=== PATIENT | male | born 1985 | race Caucasian/White ===

== ENCOUNTER 2023-09-19 15:26 | Outpatient (CLI) | payer BC, SELFPAY ==
[2023-09-19 16:24] LABS: Alanine Aminotransferase 16 U/L (6-50); Albumin Level 4.9 g/dL (3.5-5.1); Alkaline Phosphatase 91 U/L (38-126); Amylase 88 U/L (30-110); Aspartate Amino Transferase 22 U/L (17-59); Bilirubin,Total 3.7 mg/dL (0.2-1.3); Lipase 127 U/L (23-300)
== END 2023-09-19 15:27 | disposition home or self-care (01) ==
PROVIDERS: PCP Internal Medicine; Referring Provider Internal Medicine Gastroenterology; Visit Provider Surgery
DX: Z01.818 Encounter for other preprocedural examination (principal); K80.20 Calculus of gallbladder without cholecystitis without obstruction
CPT/HCPCS: 36415; 80076; 82150; 83690

== ENCOUNTER 2023-09-21 01:45 | Day surgery (SDC) | payer BC, SELFPAY ==
[2023-09-12 15:09] VITALS: BMI 17.7
--- NOTE | 2023-09-12 15:13 | PC.NURSE ---
Report to the Outpatient Waiting Room, entrance under the green pavilion located off [facility], at time 10:00 on date 09/21/23. Planned Procedure Time: 12:00. Time changes happen often and if your time is changed the preop area will call you the afternoon before. - You and your visitor will be asked to self-screen and do not enter if you have any COVID symptoms. - A mask is optional within the hospital at this time. Patients may have clear liquids (water, carbonated beverages, clear teas, apple juice) until 3 hours prior to surgery (9:00) with a maximum of 20 ounces. - No food from midnight until time of surgery Take the following medications with a SIP of water the morning of surgery: N/A DO NOT STOP ANY OF YOUR OTHER PRESCRIPTION MEDICATIONS PRIOR TO SURGERY ?EXCEPT THE FOLLOWING Medications to discontinue per physician: IBUPROFEN Date to take last dose: PER DR. AYALA (ONLY TAKING AFTER WISDOM TOOTH EXTRACTION) Please no make-up, nail korean, hairspray, perfume, deodorant, or body powder the day of surgery. No jewelry (including any body piercings) or valuables the day of surgery, leave them at home. Please take a shower or bath the night before, or the morning of, surgery with an antibacterial soap. Wear comfortable, loose fitting clothing. - Jewelry must be removed prior to entering the operating room. Rings and piercings that are not removed may be cut off. - The hospital will not accept responsibility for valuables. - Please leave all valuables, including medications, at home the day of surgery. If you are going home after surgery, a licensed trailer driver must drive you home. - NO public transportation without another adult if you receive anesthesia. - We recommend that an adult stay with you for 24 hours following discharge. - We also recommend that you do not drive, make important decision, drink alcoholic beverages, or take any drugs that were not prescribed by your health care provider for at least 24 hours after your discharge time. Follow any additional instructions given to you from your surgeon. If you or anyone in your household have experienced Covid symptoms in the past week, please notify your surgeon or the nurse liaison at the phone number below for possible testing. Telephone instructions given to PT - PASCALE WALDEN and asked if any additional questions and then verbalized understanding. Patient advised to call surgeon office or pre surgery nurse liaison [phone] if any additional questions.
--- NOTE | ~2023-09-21 | XR_ITS ---
EXAMINATION: XR cholangiogram surg 1st inj DATE: 09/21/2023 13:06 INDICATION: Laparoscopic cholangiogram TECHNIQUE: 65 fluoroscopic images of the right upper quadrant were obtained during intraoperative cho langiography performed by the surgeon. I was not present in the operating room. Fluoroscopy exposure time was 12.5 seconds. COMPARISON: None. FINDINGS: No filling defects are identified in the common bile duct. This was communicated directly t o the operating room at 1257 hours on 09/21/2023. IMPRESSION: 1. No filling defects identified in the common bile duct. Reviewed, dictated and finalized at location B. OSOPHY PROFESSOR
[2023-09-21] MEDS: LACTATED RINGERS 1,000 ML 30 ML IV CONT ×2 (10:30→13:21)
[2023-09-21 11:00] VITALS: BP 149/91; PULSE 92; RESP 16; TEMP 36.8; O2SAT 100
[2023-09-21] MEDS: ACETAMINOPHEN 500 MG TABLET 1000 MG PO (11:00)
[2023-09-21] MEDS: KETOROLAC 15 MG/ML VIAL (*BKC) IV PUSH (11:00)
--- NOTE | 2023-09-21 11:55 | P.PNAN_ITS ---
Anes - Initial Pre Proc Eval Procedure: Operation Date: 09/21/23 12:00 Proposed Procedures p Laparoscopic Cholecystectomy Intraoperative Cholangiogram, Possible Open - Higinio Wu DO Date/Time: 09/21/23 11:55 Surgeon: Higinio Wu DO Pre Op Diagnosis: symptomatic cholelithiasis, Elev Liver Enzymes Patient Data Age: 38 Gender: M Height: 1.68 m Weight: 45.6 kg Last Vital Signs Temp 36.8 C 09/21/23 11:00 Pulse 92 09/21/23 11:00 Resp 16 09/21/23 11:00 BP 149/91 H 09/21/23 11:00 Pulse Ox 100 09/21/23 11:00 O2 Del Method Room Air 09/21/23 11:00 Allergies Allergy/AdvReac Type Severity Reaction Status Date / Time No Known Allergies Allergy Verified 09/21/23 11:16 Home Medications Medication Instructions Recorded Confirmed Type ibuprofen 800 mg tablet 800 mg PO TID PRN Pain 09/12/23 09/21/23 History Patient hx anesthesia problems: none Family hx anesthesia problems: none Results Review: All pre-operative results and documents have been reviewed as part of the pre- operative evaluation. PMFSH Family History Family History Other Cancer Heart disease Social History Social History Smoking status: Never smoker Alcohol intake: never Substance use: current Substance use type: marijuana Living arrangements: alone Spiritual care concerns: No Anes - Eval Final PreProcedure Day of Procedure 09/21/23 11:55 Patient weight: cachectic Heart: regular rate and rhythm Lungs: clear to auscultation Airway: Mallampati scale class II Neurological: alert and oriented Last oral intake: >/= 8 hours ASA classification: III Emergent: no Anesthetic plan: proceed Anesthesia type and monitoring: general ETT and standard monitoring Results Review: All pre-operative results and documents have been reviewed as part of the pre- operative evaluation. Informed Consent: The patient's anesthetic plan and its attendant risks and benefits were discussed with the patient/family/POA. Questions were solicited and answers provided to the satisfaction of the patient/family/POA.
--- NOTE | 2023-09-21 12:10 | WPDHPUPDATE1 ---
History and Physical Update Update Date/Time: 09/21/23 12:10 History and Physical has been reviewed, including an updated exam of the patient. There are NO changes in the patient's condition. Risks, benefits, and alternatives have been discussed and questions answered. Patient agrees to proceed with procedure.
--- NOTE | 2023-09-21 12:10 | PM.IMHP ---
H&P: HPI History of Present Illness Date/Time: 09/21/23 12:10 Chief Complaint: symptomatic cholelithiasis Narrative: 38 yo man presents for laparoscopic cholecystectomy with IOC. He reports no changes since last seen in office. Review of Systems Review of Systems: All systems reviewed & are unremarkable except as noted in HPI and below Constitutional: Constitutional: Denies chills, Denies fever(s), Denies headache(s) and Denies weight loss Eyes: Eyes: Denies change in vision ENT: Denies dizziness, Denies headache(s), Denies neck mass and Denies throat swelling Cardiovascular: Cardiovascular: Denies chest pain, Denies lightheadedness and Denies dyspnea Respiratory: Respiratory: Denies cough, Denies dyspnea and Denies wheezing Gastrointestinal: Gastrointestinal: Denies abdominal pain, Denies change in bowel habits, Denies nausea and Denies vomiting Genitourinary: Genitourinary: Denies hematuria and Denies dysuria Musculoskeletal: Musculoskeletal: Reports as per HPI Integumentary/Breasts: Skin/Breast: Reports as per HPI Neurologic: Denies dizziness and Denies headache(s) Allergic/Immunologic: Allergic/Immunologic: Denies throat swelling and Denies wheezing [facility] Family History Family History Other Cancer Heart disease Social History Social History Smoking status: Never smoker Alcohol intake: never Substance use: current Substance use type: marijuana Living arrangements: alone Spiritual care concerns: No Meds Home Medications and Allergies Home Medications Medication Instructions Recorded Confirmed Type ibuprofen 800 mg tablet 800 mg PO TID PRN Pain 09/12/23 09/21/23 History Allergies Allergy/AdvReac Type Severity Reaction Status Date / Time No Known Allergies Allergy Verified 09/21/23 11:16 Vital Signs Vital Signs - 24 hr 09/21/23 11:00 Temperature 36.8 C Pulse Rate 92 Respiratory Rate 16 Blood Pressure 149/91 H Pulse Oximetry 100 Oxygen Delivery Room Air Exam Const: General: no acute distress and alert Orientation/consciousness: patient oriented x3 HENMT: Head: normocephalic and atraumatic Ears: hearing grossly normal bilaterally Face/Nose/Sinus: Normal nares present Mouth: Yes Normal oral and palatal mucosa present Eyes: Periorbital: periorbital findings normal Sclera: sclerae normal EOM: EOMs intact bilaterally Neck: Neck: normal visual inspection, no lymphadenopathy and trachea midline Chest: Chest palpation & inspection: normal inspection of the chest Resp: Effort & Inspection: normal respiratory effort Auscultation: clear to auscultation bilaterally Cardio: Jugular venous distension: no JVD Rate: regular rate Rhythm: regular rhythm Heart sounds: S1 normal heart sound present and S2 normal heart sound present Peripheral pulses: Peripheral pulses 2+ throughout GI: Inspection: normal to inspection GI Palp: Yes Soft to palpation, No Tenderness to palpation present (GI), No Guarding due to palpation present (GI) and No Rebound tenderness present Percussion: Yes normal to percussion Auscultation: normal bowel sounds : General: Yes no CVA tenderness Back/Spine/Pelvis: Back: no CVA tenderness Neuro: General: patient oriented x3, no focal motor deficits and CN's II-XI intact bilaterally Cognition (Neuro): normal cognition Speech: normal speech Motor exam (neuro): 5/5 motor strength present throughout Extrem: General: capillary refill normal and no clubbing, cyanosis or edema Assessment and Plan Assessment and plan (1) Symptomatic cholelithiasis: Code(s): K80.20 - Calculus of gallbladder without cholecystitis without obstruction Status: Acute Assessment and Plan: I have recommended laparoscopic cholecystectomy with cholangiogram, possible open. I have discussed the procedure, risks, benefits, and al
[2023-09-21] MEDS: ceFAZolin 2 GM/D5W 50 ML 2 GM/50 ML BAG IVPB (12:31)
[2023-09-21] MEDS: BUPIVACAINE/EPINEPHRINE 0.5% 10 ML VIAL 30 ML INFILTRATE (12:49)
--- NOTE | 2023-09-21 13:12 | W.PM.PROC2 ---
Procedure Note - Detailed Date of Procedure 09/21/23 Pre-op Diagnosis symptomatic cholelithiasis, Elev Liver Enzymes Post-op Diagnosis Same Procedure Performed Laparoscopic cholecystectomy with intraoperative cholangiogram Surgeon Higinio Wu DO Anesthesia General and Local (0.5% bupivacaine) Indications This is a 38-year-old man who presents with right upper quadrant pain over the past 4 months. He has had episodes of jaundice as well. An ultrasound showed evidence of cholelithiasis. He had prior episode of elevated liver enzymes but also has chronically elevated bilirubin level secondary to Gilbert's disease. He has not noticed any dark tea-colored urine. Discussions were made with the patient about treatment options and decision was made to proceed with laparoscopic cholecystectomy with intraoperative cholangiogram. Findings Laparoscopic cholecystectomy with cholangiogram was performed. The patient's gallbladder had a few pericholecystic adhesions. The cystic duct appeared normal in size and no other significant abnormalities were noted. Intraoperative cholangiogram was obtained using Omnipaque contrast and fluoroscopy. There did not appear to be any evidence of common bile duct filling defects or obstruction. The images were sent to the radiologist for interpretation. The gallbladder was removed and sent to the lab for pathology. Description of Procedure Procedure as well as risks, benefits, and alternatives were discussed with patient. Written consent was obtained and placed in chart prior to procedure. The patient was brought back to surgical suite. Patient was placed in supine position on operating table. Time-out was done to confirm patient and procedure. Patient was then intubated by the anesthesia department. Abdomen was prepped and draped in sterile fashion using chlorhexidine prep. 0.5% bupivacaine with epinephrine was infiltrated at each site of incision. An 11 millimeter vertical incision was made at the inferior portion of the umbilicus using a 15 blade scalpel. Blunt dissection was carried down to the linea alba. The linea alba was then incised using a 15 blade scalpel. The peritoneum was then bluntly entered. An 11 millimeter trocar was inserted and carbon dioxide insufflation was used to create a pneumoperitoneum. The camera was inserted and the abdomen was inspected. The patient was placed in reverse Trendelenberg position and rotated slightly to the left. A 5 millimeter incision was made in the epigastric region, and a 5 millimeter trocar was inserted under direct visualization. Two 5 millimeter incisions were made in the right upper quadrant, and two 5 millimeter trocars were inserted under direct visualization. The gallbladder was identified and grasped at the fundus and retracted superiorly. It was then grasped at the infundibulum retracted laterally. Careful dissection around the neck of the gallbladder was performed using blunt dissection with a [place] grasper and hook electrocautery. The cystic duct was identified, and a window was created behind it. The cystic artery was also identified and a window was created behind it. The critical view of safety was identified, visualizing the cystic duct running directly into the neck of the gallbladder, and the cystic artery running directly into the wall of the gallbladder. A 5 millimeter clip facilities operations technician was then used to place 2 clips proximally and 1 clip distally on the cystic artery. It was then transected using endoscopic scissors. The Kwan clamp was then advanced across the neck of the gallbladder and the Kwan cholangiocatheter was advanced into the distal neck of the gallbladder. The catheter flushed with saline with ease. The patient was then flattened out in bed and fluoroscopy was used to obtain an intraoperative cholangiogram with Omnipaque contrast. The images were sent to the radiologist for interpretation. Patient was paced back in reverse Trendelen
[2023-09-21 13:21] VITALS: BP 116/72; PULSE 89; RESP 14; TEMP 36.6; O2SAT 100
[2023-09-21 13:36] VITALS: BP 106/67; PULSE 74; RESP 14; O2SAT 100
[2023-09-21 13:51] VITALS: BP 132/92; PULSE 97; RESP 19; O2SAT 100
[2023-09-21 14:10] VITALS: BP 137/88; PULSE 93
[2023-09-21 14:40] VITALS: BP 123/85; PULSE 85
== END 2023-09-21 15:10 | disposition home or self-care (01) ==
PROVIDERS: PCP Internal Medicine; Referring Provider Internal Medicine Gastroenterology; Visit Provider Surgery
PROC: 0FT44ZZ Resection of Gallbladder, Percutaneous Endoscopic Approach (ICD-10-PCS; CPT 47562; principal; 2023-09-21 12:00)
DX: K80.10 Calculus of gallbladder with chronic cholecystitis without obstruction (principal); R64 Cachexia; Z68.1 Body mass index [BMI] 19.9 or less, adult; F12.90 Cannabis use, unspecified, uncomplicated
CPT/HCPCS: 47563; 36415; 74300; 80076; 82150; 83690; 88304; A9270; J0690; J1100; J1885; J2250; J2405; J2704; J3010; J7120; Q9966